=== PATIENT | male | born 1975 | race Caucasian/White ===

== ENCOUNTER 2021-08-06 14:30 | Emergency (ER) | payer MEDICARE, MEDICAID ==
[~2021-08-06] VITALS: Ht 190.5 cm; Wt 74.8 kg
[2021-08-06] MEDS ORDERED: IBU600T PO (16:42)
[2021-08-06] MEDS ORDERED: HYDROcodone-ACET 10/325MG TAB PO ONE (16:45)
[2021-08-06 17:33] VITALS: BP 138/72
== END 2021-08-06 17:36 | disposition home or self-care (01) ==
LOC: ER 14:30
DX: S42.001A Fracture of unspecified part of right clavicle, initial encounter for closed fracture (principal); W18.39XA Other fall on same level, initial encounter; Y93.89 Activity, other specified; Y92.89 Other specified places as the place of occurrence of the external cause; Y99.8 Other external cause status
CPT/HCPCS: 73030